=== PATIENT | male | born 1975 | race Caucasian/White ===

== ENCOUNTER 2017-06-18 07:12 | Inpatient (IN) ==
[2017-06-18] MEDS ORDERED: *HR* OxyCODONE Immed Rel 5 MG TABLET PO PRN (11:09)
[2017-06-18] MEDS ORDERED: Ondansetron 4 MG/2 ML VIAL IVP PRN (11:09)
[2017-06-18] MEDS ORDERED: Naloxone 0.4 MG/ML INJ IVP PRN (11:09)
[2017-06-18] MEDS ORDERED: Acetaminophen 325 MG TABLET PO PRN (11:09)
[2017-06-18] MEDS ORDERED: 0.9 % Sodium Chloride 1,000 ML IVC SCH (11:15)
--- NOTE | 2017-06-18 11:18 | Internal Med History&Physical ---
Date of Encounter: 06/18/17 Time of Encounter: 11:00 Assessment and Plan (1) Sepsis Current visit: Yes Status: Acute has fever, tachycardia, leukocytosis and has left upper extremity cellulitis, failed outpatient therapy; f/up blood and wound cultures and continue IV hydration and antibiotics; monitor vital signs closely; remaining plan as below; Qualifiers: Sepsis type: sepsis due to unspecified organism Qualified Code(s): A41.9 - Sepsis, unspecified organism (2) Abscess of skin or subcutaneous tissue Current visit: Yes Status: Acute Cellulitis and abscess secondary to thorn prick; f/up blood and wound cultures and continue IV Vancomycin and Zosyn; pain control with PRN Percocet and IV Morphine; check CT left UE- shows 6mm foreign body in anteromedial subcutaneous tissues of arm with surrounding fluid collection, concerning for small abscess; Surgery consulted; Supportive care and left UE elevation; Qualifiers: Site of cutaneous abscess: extremity Site of cutaneous abscess of extremity : upper extremity Laterality: left Qualified Code(s): L02.414 - Cutaneous abscess of left upper limb (3) Cellulitis Current visit: Yes Status: Acute plan as above; Qualifiers: Site of cellulitis: extremity Site of cellulitis of extremity: upper extremity Laterality: left Qualified Code(s): L03.114 - Cellulitis of left upper limb (4) Foreign body (FB) in soft tissue Current visit: Yes Status: Acute plan as above; Internal Medicine - H&P: HPI Chief complaint: Left arm pain Admitted From: Emergency Dept Plans for Post Hospital Care: Home History of present illness: Mr. Maya is a 42 year old male with no significant past medical history oresents with c/o- pain and swelling in his left arm. Patient reports cutting weeds and branches in his [id number] yard a few days ago and got pricked by a thorn. He later developed redness, pain and swelling in his left arm just above his elbow and presented to ER 2 days ago and underwent incision and drainage and was sent home with packing and PO antibiotics- Keflex and Bactrim. He reports filling these prescriptions and taking the antibiotics despite which he developed significant worsening in his symptoms of pain, redness, swelling in his lower arm, now extending into forearm and upper arm. Packing ell out and he had pus-like drainage from the open wound, associated with fever, chills, nausea and generalized weakness. Past Med Surg Social Fam HX - Past Medical History Source: patient Medical history: no medical history Psychiatric history: no psych history - Past Surgical History Surgical History: no surgical history - Social History Smoking Status: Current every day smoker Smokeless Tobacco Status: No Alcohol use: none Drug use: none Occupational status: employed Current living situation: Home, With Family Activity Level: Independent ambulation Recent Out of Country Travel Within the Last 8 Weeks: No Exposure or Possible Exposure to Illness During Travel: No - Additional Family History Additional family history: reviewed and found noncontributory Internal Medicine - H&P: Meds 3 Allergy/AdvReac Type Severity Reaction Status Date / Time No Known Allergies Allergy Verified 06/18/17 11:16 All Systems PM: A 10-system review of systems was performed and is negative for pertinent findings except as documented above in the HPI. - Constitutional Constitutional: chills, fever(s), lethargy - EENT Eyes: no change in vision, no discharge, no pain, no photophobia Ears: no ear discharge, no ear pain, no tinnitus Nose, mouth and throat: no dysphagia, no nasal discharge, no neck pain, no sore throat - Cardiovascular Cardiovascular ROS IM: no chest pain, no diaphoresis, no dyspnea, no lightheadedness, no palpitations, no syncope - Respiratory Respiratory: no cough, no dyspnea, no wheezing, no excessive phlegm production - Gastrointestinal Gastrointestinal: nausea - Musculoskeletal Musculoskeletal ROS IM: no numbness, no tingling - Integumentary Integumentary IM: as per HPI, erythema, skin ulcer - Neurological Neurological ROS: no confusion, no convulsions, no focal weakness, no numbness, no tingling, no tremor(s) - Hematologic/Lymphatic Hematologic/Lymphatic: no easy bruising - Constitutional Vitals: Temp Pulse Resp BP Pulse Ox 98.2 F 62 16 117/75 100 06/18/17 10:51 06/18/17 10:51 06/18/17 10:51 06/18/17 10:51 06/18/17 10:51 General appearance: Present: A&O X 3, severe distress (due to pain), answers questions appropriately - Respiratory Respiratory exam: Present: CTAB. Absent: accessory muscle use, rales, rhonchi, wheezes - Cardiovascular Cardiovascular exam: Present: RRR, +S1, +S2. Absent: diastolic murmur, gallop, rubs, systolic murmur - GI/Abdominal GI/Abdominal exam: Present: normal bowel sounds, soft, no peritoneal signs. Absent: distended, tenderness - Extremities Exam Extremities exam: Present: warm, radial pulses palpable and symmetrical. Absent : calf tenderness, cyanotic, pedal edema Additional comments: Left UE- erythema, tenderness and edema in distal arm extending into forearm and upper arm diffusely with focal swelling at medial arm above elbow; small incision noted with purulent non-foul smelling drainage; fluctuance noted over the surrounding area; - Neurological Exam Neurological exam: Present: CN II-XII intact, oriented X3, no focal deficits. Absent: pronater drift, facial droop, speech deficit - Skin Skin exam: Present: dry, erythema, intact
[2017-06-18] MEDS: *HR* Morphine 2 MG/ML SYRINGE IVP PRN ×2 (12:00→16:11)
--- NOTE | 2017-06-18 12:24 | General Surgery Consult Note ---
<Dorothy Borrero - Last Filed: 06/18/17 16:16> Date of Encounter: 06/18/17 Time of Encounter: 12:00 Assessment and Plan (1) Abscess Current Visit: No Status: Acute Small area of previous incision and drainage site noted open and draining green material. There is surrounding fluctuance and extending cellulitis. CT of the left upper ext revealed fluid collecitona nd foreign body. We will plan for incision and drainage and FB removal in the OR in the next 24 hours. Recommendations, risks, and benefits of the procedure are reviewed and the patient is agreeable to proceed. NPO Continue IV antibiotics. (2) Cellulitis Current Visit: Yes Status: Acute See above Qualifiers: Site of cellulitis: extremity Site of cellulitis of extremity: upper extremity Laterality: left Qualified Code(s): L03.114 - Cellulitis of left upper limb (3) Foreign body (FB) in soft tissue Current Visit: Yes Status: Acute See above History of Present Illness Consult date: 06/18/17 (Dr. Rossi) Reason for consult: wound care (Left Forearm/Elbow Abscess/Cellulitis) Requesting physician: Jacquie Grace History of present illness: Wei is a 42-year-old male who presents for a left forearm abscess. He has a past medical history of smoking addiction. He denies alcohol or illicit drug use. He states that he was working outside cutting trees, got a thorn in the left forearm that "got infected." The area has been incised and drained once on 06/16/2017 and once this a.m. in the emergency department. He states there has been no improvement since either I&D nor with PO antibiotics. He endorses extension of the redness up his middle aspect of the upper arm and into the lower forearm and is circumferential. He reports fevers but is unable to quantify a max temperature. He describes the discomfort as constant, 10 out of 10, aggravated by touching or bumping the area, alleviated by nothing. Surgery has been asked to evaluate the patient for possible incision and drainage of left forearm abscess. Endorse continued green drainage. He denies Dizziness, CP, SOB, pain in his extremities, or generalized weakness. Past Med Surg Social Fam HX - Past Medical History Source: patient Medical history: no medical history Psychiatric history: no psych history - Past Surgical History Surgical History: no surgical history - Social History Smoking Status: Current every day smoker Smokeless Tobacco Status: No Alcohol use: none Drug use: none Occupational status: employed Current living situation: Home - Independent Activity Level: Independent ambulation Recent Out of Country Travel Within the Last 8 Weeks: No Exposure or Possible Exposure to Illness During Travel: No Medications and Allergies 3 Allergy/AdvReac Type Severity Reaction Status Date / Time No Known Allergies Allergy Verified 06/18/17 11:16 Review of Systems All systems PM: reviewed and no additional remarkable complaints except as stated All systems PM: A 10-system review of systems was performed and is negative for pertinent findings except as documented above in the HPI. General Surgery Exam Initial Vital Signs Temp Pulse Resp BP Pulse Ox 97.5 F L 66 16 139/84 99 06/18/17 08:09 06/18/17 08:09 06/18/17 08:09 06/18/17 08:09 06/18/17 08:09 - General physical appearance no distress, moderate pain - Eyes normal ocular movement - ENT poor intermediate, atraumatic, normocephalic - Neck trachea midline, no venous distension - Respiratory normal expansion, normal respiratory effort, clear to auscultation - Cardiovascular Cardiovascular exam: Present: RRR, no murmurs/rubs/gallops Additional Comments: Distal pulses are intact. There is no petechiae or evidence of shower clotting noted. - Abdomen Abdomen general surgery: Present: bowel sounds present, soft, non tender - Integumentary Integumentary general surgery: Present: warm and dry, other (Left medial aspect elbow/forearm with area approximately the size of a golf ball that is joint with surrounding era FEMA/cellulitis that extends to the mid-aspect of the upper arm and just proximal to the wrist and is circumferential. Green drainage is noted.) - Neurologic Present: CN 2-12 grossly intact, normal coordination, normal sensation - Musculoskeletal Present: normal gait, normal posture - Psychiatric Psychiatric general surgery: Present: A&Ox3, appropriate, oriented to person, oriented to place, oriented to time, speech is normal, memory intact Exam Initial Vital Signs Temp Pulse Resp BP Pulse Ox 97.5 F L 66 16 139/84 99 06/18/17 08:09 06/18/17 08:09 06/18/17 08:09 06/18/17 08:09 06/18/17 08:09 Results - Labs Leukocytosis noted with a white blood cell count of 12.7. CT of the left extremity pending. Consult Discharge Plan - Plan Referrals: NONE,PCP [Primary Care Provider] - <Kurt Rossi - Last Filed: 06/18/17 20:29> Date of Encounter: 06/18/17 Review of Systems All systems PM: A 10-system review of systems was performed and is negative for pertinent findings except as documented above in the HPI. General Surgery Exam Initial Vital Signs Temp Pulse Resp BP Pulse Ox 97.5 F L 66 16 139/84 99 06/18/17 08:09 06/18/17 08:09 06/18/17 08:09 06/18/17 08:09 06/18/17 08:09 Exam Initial Vital Signs Temp Pulse Resp BP Pulse Ox 97.5 F L 66 16 139/84 99 06/18/17 08:09 06/18/17 08:09 06/18/17 08:09 06/18/17 08:09 06/18/17 08:09 Results - Labs All other labs normal. - Attending Attestation I have personally seen and examined the patient. I have reviewed pertinent labs , imaging, progress notes, including this one. I agree with the above assessment and plan and wish to include the following... 42M with a L forearm abscess s/p bedside I&D x 2 with continued purulent drainage, foreign body and associated cellulitis. Will need I &D in OR today. continue abx, pain control per primary team. consent and place on OR add on schedule
[2017-06-18] MEDS: *HR* Heparin 5,000 UNIT/ML VIAL SQ SCH (15:37)
[2017-06-18] MEDS ORDERED: Piperacillin/Tazobactam 3.375 GM in D5% in Water (Mini-Bag+) 100 ML IVPB SCH (16:00)
[2017-06-18] MEDS ORDERED: Vancomycin 1,000 MG in D5% in Water 250 ML IVPB SCH (17:00)
[2017-06-18] MEDS ORDERED: *HR* FentaNYL (PF) 100 MCG/2 ML VIAL ONE (21:16)
[2017-06-18] MEDS ORDERED: Lidocaine -MPF 2% 2 ML VIAL ONE (21:16)
[2017-06-18] MEDS ORDERED: *HR* Midazolam HCl 2 MG/2 ML VIAL ONE (21:17)
[2017-06-18] MEDS ORDERED: *HR* Propofol 200 MG/20 ML VIAL IVP ONE (21:17)
--- NOTE | 2017-06-18 21:31 | Anesthesia Evaluation PreOp ---
Date of Encounter: 06/18/17 Time of Encounter: 21:29 - Past History Planned Operation: I&D L-Forearm /Foreign Body Removal Cardiac History: Denies any Significant Hx Pulmonary History: Smoker (1ppd x 20yrs) GREETER History: Denies Any Significant HX Other Medical History: Denies Any Significant HX Anesthesia History: Past Anesthesia (NO prior GA), MH (NO FamHx of MH) Alcohol Use: none Drug use: none Medications and Allergies 3 Allergy/AdvReac Type Severity Reaction Status Date / Time No Known Allergies Allergy Verified 06/18/17 11:16 - Meds/Allergy Pre-op Review Medications Reviewed: Yes Allergies Reviewed: Yes Beta Blockers on Current Med List: No Anesthesia Results - Labs Impressions Upper Extremity CT 06/18/17 14:00 IMPRESSION: 1. 6 mm radiopaque foreign body within the anteromedial subcutaneous tissues at distal arm with a small amount of adjacent fluid measuring 0.8 x 1.4 x 0.6 cm. Findings highly suspicious for small abscess. There is pronounced subcutaneous edema compatible with cellulitis. Additionally, the distal long head triceps muscle and distal biceps brachii muscle along their medial aspect appear heterogeneous concerning for myositis. No evidence for osteomyelitis. D/ / Aaron Mendenhall MD / Aaron Mendenhall MD Interpreting Provider: Aaron Mendenhall MD Anesthesia Exam Vital Signs Temp Pulse Resp BP Pulse Ox 06/18/17 20:01 98.8 F 66 16 126/80 99 06/18/17 14:44 99.4 F 71 16 132/72 100 06/18/17 10:51 98.2 F 62 16 117/75 100 06/18/17 08:09 97.5 F L 66 16 139/84 99 Intake and Output 06/18/17 06/18/17 06/18/17 07:59 15:59 23:59 Intake Total 350 / 350 Output Total 1300 / 1300 400 / 400 Balance -1300 / -1300 -50 / -50 Intake: IV Fluids 350 / 350 Zosyn 3.375 GM In Dextrose 5% ( 100 / 100 Minibag+) 100 ML 100 ML @ 25 mls/hr IVPB Q8HR [facility] Rx#: [id number] Vancocin 1,000 MG In Dextrose 5 250 / 250 % 250 ML @ 250 mls/hr IVPB Q12H [facility] Rx#:[id number] Oral 0 / 0 Output: Urine 1300 / 1300 400 / 400 Other: Meal NPO # Bowel Movements 0 Weight 63.503 kg Patient Weight 06/18/17 23:59 Weight 63.503 kg Height: 5'10" Weight: 140# BMI = 20 NPO (# of Hours): 1500 "few fritos and some Mtn Dew" - HEENT Pupil (Motor): Pupils equal, EOMI Mallampati: II Teeth: Poor dentition Oral Opening: Greater than 3 - GREETER LOC: Oriented GREETER Motor: Normal RUE, Normal LUE, Normal RLE, Normal LLE, Normal Face GREETER Sensory: Normal: RUE, LUE, RLE, LLE, Face - Cardiac Rhythm: Regular Murmur: None - Pulmonary Breath Sounds: bilateral Clear Respiratory Effort: Symmetrical Anesthesia Assess/Plan ASA Score: 2, E Modified [place] Scale for Level of Consciousness: Cooperative, oriented, and tranquil Anesthetic Plan: General Monitoring Plan: Standard Monitors Recovery Plan: PACU Anes Supervising Prov Stmt: Pt seen/evaluated, R&B Discussed, questions answered and consent obtained. Nikolai Hamm MD
[2017-06-18] MEDS ORDERED: Famotidine 20 MG/2 ML VIAL ONE (21:34)
[2017-06-18] MEDS ORDERED: Metoclopramide 10 MG/2 ML VIAL ONE (21:34)
[2017-06-18] MEDS ORDERED: Ketorolac 30 MG/ML VIAL ONE (22:40)
[2017-06-18] MEDS ORDERED: *HR* Magnesium Sulfate 1 GM/2 ML VIAL ONE (22:50)
[2017-06-18] MEDS ORDERED: *HR* HYDROmorphone 2 MG/ML SYRINGE ONE (22:54)
[2017-06-18] MEDS ORDERED: Ondansetron 4 MG/2 ML VIAL ONE (22:59)
[2017-06-18] MEDS ORDERED: Vancomycin 1,000 MG VIAL ONE (23:00)
[2017-06-19] MEDS: *HR* Heparin 5,000 UNIT/ML VIAL SQ SCH (00:46)
[2017-06-19] MEDS ORDERED: Piperacillin/Tazobactam 3.375 GM in D5% in Water 50 ML IVPB SCH (01:00)
[2017-06-19] MEDS ORDERED: *HR* OxyCODONE Immed Rel 5 MG TABLET PO PRN (02:56)
[2017-06-19] MEDS ORDERED: 0.9 % Sodium Chloride 1,000 ML IVC SCH (02:56)
[2017-06-19] MEDS ORDERED: *HR* Morphine 2 MG/ML SYRINGE IVP PRN (02:56)
[2017-06-19] MEDS ORDERED: Acetaminophen 325 MG TABLET PO PRN (02:56)
[2017-06-19] MEDS ORDERED: Ondansetron 4 MG/2 ML VIAL IVP PRN (02:56)
[2017-06-19] MEDS ORDERED: Naloxone 0.4 MG/ML INJ IVP PRN (02:56)
--- NOTE | 2017-06-19 02:57 | Operative Note ---
Date of procedure: 06/19/17 Pre-op diagnosis: L arm abscess, L arm foreign body Post-op diagnosis: same Procedure: incision and drainage of Left arm abscess, removal of Left arm foreign body Implants: iodoform guaze Complications: none Anesthesia: ANNAA Surgeon: Kurt Rossi Estimated blood loss (cc): 20 Specimen: abscess drainage Condition: stable Disposition: PACU Procedure in Detail: The patient was brought into the operating room suite. Placed in supine position. SCDs were placed. He underwent smooth induction of anesthesia. Preoperative antibiotics were already given. He was prepped and draped in the usual fashion. A timeout was held identifying correct patient pathology and procedure. Everyone was in agreement and we began our procedure. There was place draining purulent fluid. I used that fluid to culture. I sent for aerobic an anaerobic cultures. I then used the scapel to create a 4cm incision and electrocautery to dissect down into the abscess cavity. Purulent drainage was appreciated. I used electrocautery and pressure to control for hemostasis. I probed the wound and found a small abscess cavity in the muslce layer as well as 4cm proximal, so I extended my incision proximally. It should be stated that I did inadvertently find the foreign body and removed it from the operative field. I irrigated the wound with 3g vancomycin in 3L of fluid. I was down to the muscle layer but all areas of induration was investigated and all areas of loculations were broken. There was no active bleeding at this point. I ended the procedure. packed the wound with 1'' iodoform guaze and closed the skin with two luz elena, leaving large gaps to allow for drainage. The patient tolerated the procedure well and was transported to PACU in stable condition.
[2017-06-19] MEDS ORDERED: Vancomycin 1,000 MG in D5% in Water 250 ML IVPB SCH (05:00)
[2017-06-19 06:41] LABS: Basophils % 0.4 %; Eosinophils # 0.1 K/mcL (0.0-0.6); Hematocrit 35.2 % (37.5-50.1); Hemoglobin 12.2 g/dL (12.9-16.9); Immature Granulocytes % 0.1 % (0-4); Immature Platelets 2.3 % (1.1-6.1); Lymphocytes # 1.7 K/mcL (0.6-4.6); Lymphocytes % 24.6 %; Mean Corpuscular HGB Conc 34.7 g/dL (31.6-35.5); Mean Corpuscular Volume 86.5 fL (83.0-100.0); Mean Platelet Volume 9.4 fL (9.4-12.4); Monocytes # 0.7 K/mcL (0.0-1.3); Monocytes % 9.6 %; Neutrophils # 4.5 K/mcL (1.6-8.9); Platelet Count 237 K/mcL (140-400); Red Blood Count 4.07 M/mcL (4.19-5.50); Red Cell Distribution Width 12.5 % (11.5-14.5); Segmented Neutrophils % 63.3 %
[2017-06-19 06:55] LABS: Alanine Aminotransferase 32 Units/L (0-55); Albumin 2.6 g/dL (3.5-5.0); Albumin/Globulin Ratio 0.7 (1.1-2.2); Alkaline Phosphatase 63 Units/L (38-126); Aspartate Amino Transferase 18 Units/L (5-34); BUN/Creatinine Ratio 12 (6-26); Bilirubin,Total 0.6 mg/dL (0.2-1.2); Blood Urea Nitrogen 10 mg/dL (8-26); Calcium 8.3 mg/dL (8.6-10.8); Carbon Dioxide 24 mEq/L (19-29); Chloride 105 mEq/L (98-109); Globulin 3.8 g/dL (2.4-3.5); Glucose 133 mg/dL (70-99); Osmolality,Calculated 285 (280-300); Potassium 4.2 mEq/L (3.5-4.5); Sodium 137 mEq/L (136-145); Total Protein 6.4 g/dL (6.0-8.3); eGFR For African Americans > 60 (> 60); eGFR For Non-African Americans > 60 (> 60)
[2017-06-19] MEDS ORDERED: *HR* Heparin 5,000 UNIT/ML VIAL SQ SCH (08:00)
[2017-06-19 10:15] VITALS: BP 100/57
--- NOTE | 2017-06-19 11:20 | General Surgery Progress Note ---
Date of Encounter: 06/19/17 Time of Encounter: 07:20 - Assessment and Plan (1) Abscess of skin or subcutaneous tissue Current Visit: Yes Status: Acute POD #1 s/p I&D; improvement in cellulitis and ROM - cont IV abx x 24hrs - re-eval in AM - diet as tolerated - pain per primary team - if doing well with continued improvement in AM, okay for d/c 06/20 with plans for follow up in my wound clinic on 06/25 Qualifiers: Site of cutaneous abscess: extremity Site of cutaneous abscess of extremity : upper extremity Laterality: left Qualified Code(s): L02.414 - Cutaneous abscess of left upper limb (2) Cellulitis Current Visit: Yes Status: Acute see above Qualifiers: Site of cellulitis: extremity Site of cellulitis of extremity: upper extremity Laterality: left Qualified Code(s): L03.114 - Cellulitis of left upper limb (3) Foreign body (FB) in soft tissue Current Visit: Yes Status: Acute resolved; removed in OR (4) Sepsis Current Visit: Yes Status: Acute see above Qualifiers: Sepsis type: sepsis due to unspecified organism Qualified Code(s): A41.9 - Sepsis, unspecified organism Subjective Patient reports: no new complaints, feels better, still having pain, pain is less Objective Vital Signs - Last 8 Hours Temp Pulse Resp BP Pulse Ox 06/19/17 10:13 98.0 F 82 14 100/57 99 06/19/17 09:00 60 118/72 06/19/17 07:33 97.9 F 54 14 102/39 100 06/19/17 03:24 98.2 F 51 18 114/71 98 Intake and Output 06/18/17 06/19/17 06/19/17 23:59 07:59 15:59 Intake Total 350 / 350 250 / 250 240 / 240 Output Total 420 / 420 300 / 300 0 / 0 Balance -70 / -70 -50 / -50 240 / 240 Intake: IV Fluids 350 / 350 250 / 250 Zosyn 3.375 GM In Dextrose 5% ( 100 / 100 Minibag+) 100 ML 100 ML @ 25 mls/hr IVPB Q8HR [facility] Rx#: [id number] Vancocin 1,000 MG In Dextrose 5 250 / 250 250 / 250 % 250 ML @ 250 mls/hr IVPB Q12H [facility] Rx#:[id number] Oral 0 / 0 0 / 0 240 / 240 Output: Urine 400 / 400 300 / 300 0 / 0 Estimated Blood Loss 20 / 20 - General physical appearance well developed, well nourished - ENT normocephalic - Respiratory normal expansion, normal respiratory effort - Cardiovascular Cardiovascular exam: Present: RRR - Incision Incision: Present: draining, erythema, purulent, indurated, serosanguinous, open (serosanguinous, purulent drainage; no evidence of necrotic tissue; decreased erythema) - Neurologic CN 2-12 grossly intact - Musculoskeletal other (improved ROM in LUE) - Labs 06/19/17 06:34 06/19/17 06:34 Diabetes panel 06/19/17 Range/Units 06:34 Sodium 137 (136-145) mEq/L Potassium 4.2 (3.5-4.5) mEq/L Chloride 105 (98-109) mEq/L Carbon Dioxide 24 (19-29) mEq/L BUN 10 (8-26) mg/dL Creatinine 0.84 (0.72-1.25) mg/dL Glucose 133 H (70-99) mg/dL Calcium 8.3 L (8.6-10.8) mg/dL AST 18 (5-34) Units/L ALT 32 (0-55) Units/L Alkaline Phosphatase 63 (38-126) Units/L Albumin 2.6 L D (3.5-5.0) g/dL Calcium panel 06/19/17 Range/Units 06:34 Calcium 8.3 L (8.6-10.8) mg/dL Albumin 2.6 L D (3.5-5.0) g/dL Pituitary panel 06/19/17 Range/Units 06:34 Sodium 137 (136-145) mEq/L Potassium 4.2 (3.5-4.5) mEq/L Chloride 105 (98-109) mEq/L Carbon Dioxide 24 (19-29) mEq/L BUN 10 (8-26) mg/dL Creatinine 0.84 (0.72-1.25) mg/dL Glucose 133 H (70-99) mg/dL Calcium 8.3 L (8.6-10.8) mg/dL Adrenal panel 06/19/17 Range/Units 06:34 Sodium 137 (136-145) mEq/L Potassium 4.2 (3.5-4.5) mEq/L Chloride 105 (98-109) mEq/L Carbon Dioxide 24 (19-29) mEq/L BUN 10 (8-26) mg/dL Creatinine 0.84 (0.72-1.25) mg/dL Glucose 133 H (70-99) mg/dL Calcium 8.3 L (8.6-10.8) mg/dL Total Bilirubin 0.6 (0.2-1.2) mg/dL AST 18 (5-34) Units/L ALT 32 (0-55) Units/L Alkaline Phosphatase 63 (38-126) Units/L Albumin 2.6 L D (3.5-5.0) g/dL - VTE Documentation of Mechanical Device: Venous foot pump, device Consult Discharge Plan - Plan Referrals: NONE,PCP [Primary Care Provider] -
--- NOTE | 2017-06-19 12:33 | Discharge Summary ---
Date of Encounter: 06/19/17 Time of Encounter: 12:30 - Discharge Diagnosis (1) Sepsis Priority: Primary Status: Acute Qualifiers: Sepsis type: sepsis due to unspecified organism Qualified Code(s): A41.9 - Sepsis, unspecified organism (2) Abscess of skin or subcutaneous tissue Priority: Primary Status: Acute Qualifiers: Site of cutaneous abscess: extremity Site of cutaneous abscess of extremity : upper extremity Laterality: left Qualified Code(s): L02.414 - Cutaneous abscess of left upper limb (3) Cellulitis Priority: Primary Status: Acute Qualifiers: Site of cellulitis: extremity Site of cellulitis of extremity: upper extremity Laterality: left Qualified Code(s): L03.114 - Cellulitis of left upper limb (4) Foreign body (FB) in soft tissue Priority: Primary Status: Acute - Discharge Medications Prescriptions: Clindamycin HCl 300 mg PO Q6H #28 capsule Lactobacillus Acidophilus [Acidophilus] 1 each PO BID #20 capsule Home Medications: Clindamycin HCl 300 mg PO Q6H #28 capsule 06/19/17 [Rx] Lactobacillus Acidophilus [Acidophilus] 1 each PO BID #20 capsule 06/19/17 [Rx] cephALEXin [Keflex] 1 cap PO TID 06/19/17 [History] Allergies/Adverse Reactions: 3 Allergy/AdvReac Type Severity Reaction Status Date / Time No Known Allergies Allergy Verified 06/18/17 11:16 Procedures/tests Complete & Pending: Procedures Performed prior 72 hours Category Date Time Status CT UE LT w con [CT] Stat Cat Scan 06/18/17 14:00 Completed Date of admission: 06/18/17 13:52 Primary care physician: PCP NONE Discharging clinician: Jacquie Grace Anticipated date of discharge: 06/19/17 - Patient Status Disposition: Left Against Medical Advice Condition: Fair Functional capacity at discharge: independent ambulation Overall status at discharge: patient is not back to baseline - Discharge Instructions Instructions: Cellulitis (GEN) Follow Up With: NONE,PCP [Primary Care Provider] - Additional Instructions: F/up with in 1 week - Diet and Activity Diet: advance to your usual diet Hospital course: Mr. Maya is a 42 year old male with no significant past medical history, who was admitted with worsening redness, pain and swelling in left arm. Patient had bedside incision and drainage done in the emergency room 2 days ago and was discharged with oral antibiotics-Keflex and Bactrim. He reports being compliant with these, however noticed worsening symptoms of cellulitis along with excruciating pain in left arm above his elbow and presented to the emergency room. He was noted to have purulent drainage from the surgical wound. He was also noted to be septic, started on IV hydration and broad-spectrum IV antibiotics-vancomycin and Zosyn. Blood cultures remain negative. Preliminary wound cultures remain negative. CT left upper extremity showed a 6 mm foreign body in anteromedial distal arm with surrounding small abscess along with extensive cellulitis . Surgery was consulted and patient underwent operative incision and drainage with packing. He admitted to IV drug abuse prior to his surgery and was noted to have a piece of needle in his arm. He was recommended to stay 1 more night in the hospital for continued IV antibiotics and to follow up final wound cultures, however he reported that he is very uncomfortable in the hospital, has no insurance and he has family members who can obtain wound care supplies and can take care of him at home. He was explained about the risks of leaving AMA including worsening infection, sepsis and . He was alert and oriented and decided to sign AMA paperwork. He is still being discharged on oral antibiotics and encouraged to keep his follow-up appointment with surgery for wound check. - Time Spent with Patient Total time spent providing and/or coordinating discharge services: Greater than 30 minutes (40 min) - Constitutional Vitals: Temp Pulse Resp BP Pulse Ox 98.0 F 82 14 100/57 99 06/19/17 10:13 06/19/17 10:13 06/19/17 10:13 06/19/17 10:13 06/19/17 10:13 General appearance: Present: A&O X 3, answers questions appropriately - Cardiovascular Cardiovascular exam: Present: RRR, +S1, +S2. Absent: diastolic murmur, gallop, rubs, systolic murmur - VTE Documentation of Mechanical Device: Venous foot pump, device
[2017-06-19] MEDS ORDERED: Aminoglycoside Consult 1 EACH MC ONE (14:22)
== END 2017-06-19 14:23 | disposition left against medical advice (07) | DRG 854 ==
LOC: 3ANU
PROVIDERS: ADMIT Hospitalist; ATTEND Student in an Organized Health Care Education/Training Program